=== PATIENT | male | born 1950 | race Caucasian/White ===

== ENCOUNTER 2022-07-30 11:45 | Inpatient (IN) ==
[2022-07-30] MEDS ORDERED: 0.9 % Sodium Chloride 1,000 ML IVC ONE (12:04)
[2022-07-30] MEDS ORDERED: Iopamidol - 370 500 ML MLS IVP ONE (12:05)
[2022-07-30 12:27] LABS: VBG HCO3 27 mEq/L (21-27); VBG PCO2 46 mmHg (41-51); VBG PH 7.37 pH Units (7.32-7.42); VBG PO2 43 mmHg (25-50)
[2022-07-30 12:28] LABS: Basophils % 0.3 %; Hematocrit 37.7 % (37.5-50.1); Hemoglobin 12.6 g/dL (12.9-16.9); Immature Granulocytes % 0.7 % (0-4); Lymphocytes % 9.1 %; Mean Corpuscular HGB Conc 33.4 g/dL (31.6-35.5); Mean Corpuscular Hemoglobin 32.8 pg (28.0-33.3); Mean Corpuscular Volume 98.2 fL (83.0-100.0); Mean Platelet Volume 10.9 fL (9.4-12.4); Monocytes # 0.6 K/mcL (0.0-1.3); Monocytes % 5.1 %; Neutrophils # 9.6 K/mcL (1.6-8.9); Platelet Count 135 K/mcL (140-400); Red Blood Count 3.84 M/mcL (4.19-5.50); Red Cell Distribution Width 12.8 % (11.5-14.5); Segmented Neutrophils % 84.8 %; White Blood Count 11.3 K/mcL (4.3-11.1)
[2022-07-30 12:37] LABS: INR 1.3; Prothrombin Time 14.7 Seconds (9.4-12.1)
[2022-07-30 12:40] LABS: Activated Partial Thrombo Time 41.4 Seconds (26.0-36.0)
[2022-07-30 13:31] LABS: Adenovirus Not Detected (Not Detect); Coronavirus 229E Not Detected (Not Detect); Coronavirus HKU1 Not Detected (Not Detect); Coronavirus NL63 Not Detected (Not Detect); Coronavirus OC43 Not Detected (Not Detect)
[2022-07-30 13:32] LABS: Bordetella Pertussis Not Detected (Not Detect); Chlamydophila pneumoniae Not Detected (Not Detect); Human Metapneumovirus Not Detected (Not Detect); Human Rhinovirus/Enterovirus Not Detected (Not Detect); Influenza A Subtype 2009 H1 Not Detected (Not Detect); Influenza B Not Detected (Not Detect); Mycoplasma pneumoniae Not Detected (Not Detect); Parainfluenza Virus 1 Not Detected (Not Detect); Parainfluenza Virus 2 Not Detected (Not Detect); Parainfluenza Virus 3 Not Detected (Not Detect); Parainfluenza Virus 4 Not Detected (Not Detect); Respiratory Syncytial Virus Not Detected (Not Detect); SARS-CoV-2 DETECTED (Not Detect)
[2022-07-30 13:37] LABS: Alanine Aminotransferase 9 Units/L (7-52); Albumin 3.6 g/dL (3.5-5.7); Albumin/Globulin Ratio 0.8 (1.1-2.2); Alkaline Phosphatase 51 Units/L (34-104); Aspartate Amino Transferase 23 Units/L (13-39); BUN/Creatinine Ratio 25 (6-26); Bilirubin,Direct 0.2 mg/dL (0.0-0.2); Bilirubin,Indirect 0.4 mg/dL (0.0-1.0); Bilirubin,Total 0.6 mg/dL (0.3-1.0); Blood Urea Nitrogen 28 mg/dL (8-23); Carbon Dioxide 28 mEq/L (23-29); Chloride 102 mEq/L (98-107); Ethanol < 10 mg/dL (Less than 10); Globulin 4.5 g/dL (2.4-3.5); Glucose 193 mg/dL (70-105); Magnesium 1.9 mg/dL (1.6-2.6); Osmolality,Calculated 299 (280-300); Potassium 3.5 mEq/L (3.5-5.1); Sodium 139 mEq/L (136-145); Total Protein 8.1 g/dL (6.4-8.9)
[2022-07-30 14:04] LABS: Troponin I 0.04 ng/mL (< 0.04)
[2022-07-30 14:25] LABS: Thyroid Stimulating Hormone 7.409 mcIU/mL (0.340-5.600)
[2022-07-30 15:40] LABS: Amphetamine Screen,Urine Negative ng/mL (Cutoff=1000); Barbiturate Screen,Urine Negative ng/mL (Cutoff=200); Benzodiazepines Screen,Urine Positive ng/mL (Cutoff=200); Cannabinoid Screen,Urine Negative ng/mL (Cutoff = 50); Cocaine Screen,Urine Negative ng/mL (Cutoff= 300); Opiate Screen,Urine Positive ng/mL (Cutoff=300); Phencyclidine Screen,Urine Negative ng/mL (Cutoff=25)
[2022-07-30 15:52] LABS: Bacteria,Urine Few per hpf (None-Few); Bilirubin,Urine Negative (Negative); Blood,Urine Trace (Negative); Clarity,Urine Clear (Clear); Color,Urine Yellow (Yellow); Glucose,Urine (UA) Normal (Normal); Ketones,Urine Negative (Negative); Leukocyte Esterase,Urine Negative (Negative); Mucus,Urine Few per lpf (None-Few); Nitrite,Urine Negative (Negative); Protein,Urine 50 mg/dL (Neg-Trace); Specific Gravity,Urine > 1.030 (1.010-1.025); Squamous Epithelial Cell,Urine Few per hpf (None-Few); Urobilinogen,Urine Normal (Normal)
[2022-07-30] MEDS ORDERED: Acetaminophen 325 MG TABLET PO PRN (16:32)
[2022-07-30] MEDS ORDERED: Naloxone 0.4 MG/ML INJ IVP PRN (16:32)
[2022-07-30] MEDS ORDERED: Melatonin 3 MG TABLET PO PRN (16:32)
[2022-07-30] MEDS ORDERED: Ondansetron ODT 4 MG TAB.RAPDIS SL PRN (16:32)
[2022-07-30] MEDS: Nicotine 14 MG PATCH.TD24 TD SCH (17:52)
[2022-07-30] MEDS ORDERED: Ipratropium/Albuterol Neb 3 ML IH PRN (18:38)
[2022-07-30] MEDS: cefTRIAXone 2,000 MG in 0.9 % Sodium Chloride Mini Bag 100 ML IVPB SCH (20:53)
[2022-07-30] MEDS: dexAMETHasone 4 MG TABLET PO SCH (20:53)
[2022-07-30] MEDS: Azithromycin 250 MG TABLET PO SCH (20:58)
[2022-07-30] MEDS ORDERED: Haloperidol Lactate 5 MG/ML VIAL IM ONE (22:17)
[2022-07-31] MEDS ORDERED: *HR* HYDROmorphone (PF) 1 MG/ML SYRINGE IVP ONE (01:32)
[2022-07-31] MEDS: *HR* OxyCODONE/APAP 10/325 TABLET PO SCH ×3 (07:39→20:20)
[2022-07-31] MEDS: dexAMETHasone 4 MG TABLET PO SCH (07:40)
[2022-07-31] MEDS: Nicotine 14 MG PATCH.TD24 TD SCH (07:40)
[2022-07-31] MEDS: Azithromycin 250 MG TABLET PO SCH (07:41)
[2022-07-31] MEDS ORDERED: predniSONE 20 MG TABLET PO SCH (09:00)
[2022-07-31] MEDS ORDERED: Metoprolol XL (24 HR) Succ 25 MG TAB.ER.24H PO SCH (09:00)
[2022-07-31 09:03] LABS: Mean Corpuscular Volume 96.2 fL (83.0-100.0); Red Cell Distribution Width 12.8 % (11.5-14.5)
[2022-07-31 09:05] LABS: Hematocrit 32.5 % (37.5-50.1); Hemoglobin 10.9 g/dL (12.9-16.9); Mean Corpuscular HGB Conc 33.5 g/dL (31.6-35.5); Mean Corpuscular Hemoglobin 32.2 pg (28.0-33.3); Red Blood Count 3.38 M/mcL (4.19-5.50); White Blood Count 9.4 K/mcL (4.3-11.1)
[2022-07-31 09:20] LABS: BUN/Creatinine Ratio 34 (6-26); Blood Urea Nitrogen 24 mg/dL (8-23); Calcium 8.6 mg/dL (8.6-10.3); Carbon Dioxide 26 mEq/L (23-29); Chloride 107 mEq/L (98-107); Glucose 126 mg/dL (70-105); Osmolality,Calculated 294 (280-300); Potassium 3.8 mEq/L (3.5-5.1); Sodium 139 mEq/L (136-145)
[2022-07-31] MEDS: Ipratropium 1 PUFF INHALER IH SCH ×3 (10:55→22:44)
[2022-07-31] MEDS: cefTRIAXone 2,000 MG in 0.9 % Sodium Chloride Mini Bag 100 ML IVPB SCH (18:14)
[2022-07-31] MEDS ORDERED: *HR* Metoprolol 5 MG/5 ML VIAL IVP ONE (20:44)
[2022-08-01] MEDS: *HR* OxyCODONE/APAP 10/325 TABLET PO SCH ×4 (02:18→19:56)
[2022-08-01 03:03] LABS: Hematocrit 35.9 % (37.5-50.1); Mean Corpuscular HGB Conc 33.4 g/dL (31.6-35.5); Mean Corpuscular Hemoglobin 32.8 pg (28.0-33.3); Mean Corpuscular Volume 98.1 fL (83.0-100.0); Mean Platelet Volume 11.1 fL (9.4-12.4); Platelet Count 174 K/mcL (140-400); Red Blood Count 3.66 M/mcL (4.19-5.50); Red Cell Distribution Width 12.9 % (11.5-14.5); White Blood Count 14.1 K/mcL (4.3-11.1)
[2022-08-01 03:22] LABS: Calcium 9.3 mg/dL (8.6-10.3); Magnesium 2.1 mg/dL (1.6-2.6); Potassium 3.3 mEq/L (3.5-5.1)
[2022-08-01] MEDS ORDERED: *HR* Metoprolol 5 MG/5 ML VIAL IVP ONE (03:47)
[2022-08-01] MEDS: Ipratropium 1 PUFF INHALER IH SCH ×4 (04:10→21:27)
[2022-08-01] MEDS ORDERED: Metoprolol XL (24 HR) Succ 50 MG TAB.ER.24H PO SCH (09:00)
[2022-08-01] MEDS: Budesonide/Formoterol 80/4.5 1 PUFF INH IH SCH ×2 (09:22→21:27)
[2022-08-01] MEDS: Nicotine 14 MG PATCH.TD24 TD SCH (09:55)
[2022-08-01] MEDS: predniSONE 20 MG TABLET PO SCH (09:56)
[2022-08-01] MEDS: Azithromycin 250 MG TABLET PO SCH (09:56)
[2022-08-01] MEDS: ALPRAZolam 0.25 MG TABLET PO PRN (13:13)
[2022-08-01] MEDS ORDERED: *HR* Heparin 5,000 UNIT/ML VIAL IVP PRN ×2 (13:34)
[2022-08-01] MEDS ORDERED: *HR* Heparin 5,000 UNIT/ML VIAL IVP ONE (13:34)
[2022-08-01] MEDS: Heparin 25,000UNIT/250ML 1/2NS 25,000 UNIT/250 ML IV.SOLN IVC SCH (14:20)
[2022-08-01] MEDS: cefTRIAXone 2,000 MG in 0.9 % Sodium Chloride Mini Bag 100 ML IVPB SCH (17:56)
[2022-08-01] MEDS ORDERED: Acetaminophen IV 1,000 MG/100 ML BAG IVPB ONE (23:45)
[2022-08-02] MEDS: *HR* OxyCODONE/APAP 10/325 TABLET PO SCH ×5 (02:01→20:00)
[2022-08-02 03:56] LABS: Hematocrit 33.6 % (37.5-50.1); Hemoglobin 10.9 g/dL (12.9-16.9); Mean Corpuscular HGB Conc 32.4 g/dL (31.6-35.5); Mean Corpuscular Hemoglobin 32.2 pg (28.0-33.3); Mean Corpuscular Volume 99.4 fL (83.0-100.0); Mean Platelet Volume 11.3 fL (9.4-12.4); Platelet Count 180 K/mcL (140-400); Red Blood Count 3.38 M/mcL (4.19-5.50); Red Cell Distribution Width 13.2 % (11.5-14.5); White Blood Count 11.7 K/mcL (4.3-11.1)
[2022-08-02 04:15] LABS: BUN/Creatinine Ratio 43 (6-26); Blood Urea Nitrogen 35 mg/dL (8-23); Carbon Dioxide 27 mEq/L (23-29); Chloride 104 mEq/L (98-107); Chol/HDL Ratio 3.3 (0-4.9); Cholesterol 143 mg/dL (< 200); Glucose 96 mg/dL (70-105); HDL Cholesterol 44 mg/dL (40-59); LDL Cholesterol,Calculated 83 mg/dL (< 100); Osmolality,Calculated 296 (280-300); Potassium 3.4 mEq/L (3.5-5.1); Sodium 139 mEq/L (136-145); Triglycerides 80 mg/dL (< 150)
[2022-08-02 04:27] LABS: Thyroid Stimulating Hormone 2.099 mcIU/mL (0.340-5.600)
[2022-08-02] MEDS: Ipratropium 1 PUFF INHALER IH SCH ×4 (04:40→21:25)
[2022-08-02] MEDS ORDERED: *HR* HYDROmorphone 2 MG TABLET PO ONE (05:05)
[2022-08-02] MEDS: predniSONE 20 MG TABLET PO SCH (09:14)
[2022-08-02] MEDS: Metoprolol XL (24 HR) Succ 50 MG TAB.ER.24H PO SCH ×2 (09:14→18:16)
[2022-08-02] MEDS: Azithromycin 250 MG TABLET PO SCH ×2 (09:14→15:08)
[2022-08-02] MEDS: Nicotine 14 MG PATCH.TD24 TD SCH (09:15)
[2022-08-02] MEDS ORDERED: Haloperidol Lactate 5 MG/ML VIAL IM ONE ×2 (09:44→10:41)
[2022-08-02] MEDS: Budesonide/Formoterol 80/4.5 1 PUFF INH IH SCH ×2 (10:30→21:26)
[2022-08-02] MEDS: ALPRAZolam 0.25 MG TABLET PO PRN (15:08)
[2022-08-02] MEDS: Heparin 25,000UNIT/250ML 1/2NS 25,000 UNIT/250 ML IV.SOLN IVC SCH (16:05)
[2022-08-02] MEDS: Apixaban 5 MG TABLET PO SCH (19:59)
[2022-08-02] MEDS ORDERED: QUEtiapine Fumarate 25 MG TABLET PO SCH (21:00)
[2022-08-03 02:52] LABS: Hematocrit 29.8 % (37.5-50.1); Hemoglobin 9.9 g/dL (12.9-16.9); Mean Corpuscular HGB Conc 33.2 g/dL (31.6-35.5); Mean Corpuscular Hemoglobin 32.8 pg (28.0-33.3); Mean Corpuscular Volume 98.7 fL (83.0-100.0); Mean Platelet Volume 10.6 fL (9.4-12.4); Platelet Count 168 K/mcL (140-400); Red Blood Count 3.02 M/mcL (4.19-5.50); White Blood Count 6.1 K/mcL (4.3-11.1)
[2022-08-03 03:10] LABS: Alanine Aminotransferase 14 Units/L (7-52); Albumin 2.9 g/dL (3.5-5.7); Albumin/Globulin Ratio 0.9 (1.1-2.2); Alkaline Phosphatase 41 Units/L (34-104); Aspartate Amino Transferase 29 Units/L (13-39); BUN/Creatinine Ratio 36 (6-26); Bilirubin,Total 0.6 mg/dL (0.3-1.0); Blood Urea Nitrogen 27 mg/dL (8-23); Calcium 8.3 mg/dL (8.6-10.3); Carbon Dioxide 28 mEq/L (23-29); Chloride 106 mEq/L (98-107); Globulin 3.2 g/dL (2.4-3.5); Glucose 82 mg/dL (70-105); Osmolality,Calculated 290 (280-300); Potassium 3.4 mEq/L (3.5-5.1); Sodium 138 mEq/L (136-145); Total Protein 6.1 g/dL (6.4-8.9)
[2022-08-03] MEDS: Ipratropium 1 PUFF INHALER IH SCH ×4 (04:15→22:55)
[2022-08-03] MEDS: *HR* OxyCODONE/APAP 10/325 TABLET PO SCH ×4 (05:14→19:40)
[2022-08-03] MEDS: Budesonide/Formoterol 80/4.5 1 PUFF INH IH SCH ×2 (07:44→22:55)
[2022-08-03] MEDS: predniSONE 20 MG TABLET PO SCH (08:11)
[2022-08-03] MEDS: Azithromycin 250 MG TABLET PO SCH (08:11)
[2022-08-03] MEDS: ALPRAZolam 0.25 MG TABLET PO PRN ×2 (08:11→19:40)
[2022-08-03] MEDS: Apixaban 5 MG TABLET PO SCH ×2 (08:11→19:42)
[2022-08-03] MEDS: Metoprolol XL (24 HR) Succ 50 MG TAB.ER.24H PO SCH (08:11)
[2022-08-03] MEDS: Nicotine 14 MG PATCH.TD24 TD SCH (08:13)
[2022-08-03] MEDS ORDERED: QUEtiapine Fumarate 25 MG TABLET PO SCH (21:00)
[2022-08-04] MEDS: *HR* OxyCODONE/APAP 10/325 TABLET PO SCH ×3 (02:11→13:30)
[2022-08-04] MEDS: Ipratropium 1 PUFF INHALER IH SCH ×3 (04:24→15:33)
[2022-08-04 05:33] VITALS: BP 139/68; PULSE 103; TEMP 97.6
[2022-08-04 06:26] LABS: Hematocrit 31.8 % (37.5-50.1); Hemoglobin 10.4 g/dL (12.9-16.9); Mean Corpuscular HGB Conc 32.7 g/dL (31.6-35.5); Mean Corpuscular Hemoglobin 32.4 pg (28.0-33.3); Mean Corpuscular Volume 99.1 fL (83.0-100.0); Mean Platelet Volume 10.7 fL (9.4-12.4); Platelet Count 194 K/mcL (140-400); Red Blood Count 3.21 M/mcL (4.19-5.50); Red Cell Distribution Width 12.9 % (11.5-14.5); White Blood Count 6.4 K/mcL (4.3-11.1)
[2022-08-04 06:44] LABS: BUN/Creatinine Ratio 34 (6-26); Blood Urea Nitrogen 28 mg/dL (8-23); Calcium 8.6 mg/dL (8.6-10.3); Carbon Dioxide 28 mEq/L (23-29); Chloride 104 mEq/L (98-107); Glucose 102 mg/dL (70-105); Magnesium 2.2 mg/dL (1.6-2.6); Osmolality,Calculated 292 (280-300); Potassium 3.2 mEq/L (3.5-5.1); Sodium 138 mEq/L (136-145)
[2022-08-04] MEDS: Metoprolol XL (24 HR) Succ 50 MG TAB.ER.24H PO SCH (07:35)
[2022-08-04] MEDS: predniSONE 20 MG TABLET PO SCH (07:36)
[2022-08-04] MEDS: Nicotine 14 MG PATCH.TD24 TD SCH (07:36)
[2022-08-04] MEDS: Apixaban 5 MG TABLET PO SCH (07:36)
[2022-08-04] MEDS: Budesonide/Formoterol 80/4.5 1 PUFF INH IH SCH (09:31)
[2022-08-04] MEDS: ALPRAZolam 0.25 MG TABLET PO PRN (11:05)
[2022-08-04] MEDS ORDERED: ALPRAZolam 0.25 MG TABLET PO SCH (15:00)
[2022-08-04 17:01] VITALS: O2SAT 96
== END 2022-08-04 17:33 | disposition home or self-care (01) | DRG 177 ==
LOC: 2ANU 11:45 → EMEROOARM 11:45 → SUATTDRO 16:42 → 2ANU 17:39
PROVIDERS: ADMIT Internal Medicine; ATTEND Student in an Organized Health Care Education/Training Program